=== PATIENT | male | born 1965 ===

== ENCOUNTER 2018-02-20 18:12 | Emergency (ER) | payer MEDICAID ==
--- NOTE | 2018-02-20 18:59 | ED PDOC ---
HPI: General Adult Time Seen by Provider: 02/20/18 18:54 Chief Complaint (Nursing): Chest Pain Chief Complaint (Provider): CP History Per: Patient (52 Y/O MALE H/O HTN HERE WITH COMPLAINT OF CHEST TIGHTNESS ONGOING X 2 DAYS. PATIENT DENIES ANY COUGH/SOB. NOTES HE HAS HAD EPISODES OF SYNCOPE IN PAST (LAST ONE 3 WEEKS AGO AGO AND ONE 6 MONTHS AGO). WAS NOTED IN PAST TO HAVE LOW POTASSIUM/MAGNESIUM. PATIENT HAS BEEN SEEN BY CARDIOLOGY AND HAD HOLTER MONITOR 3 DAYS (6 MONTHS AGO) WNL. STATES HE HAD STRESS TEST AT THAT TIME WNL.) Past Medical History Reviewed: Historical Data, Nursing Documentation, Vital Signs Vital Signs: Last Vital Signs Temp 98.5 F 02/20/18 18:16 Pulse 65 02/20/18 18:39 Resp 16 02/20/18 18:16 BP 162/91 H 02/20/18 18:16 Pulse Ox 98 02/20/18 18:16 - Medical History PMH: HTN - Family History Family History: States: No Known Family Hx - Allergies Allergies/Adverse Reactions: Allergies Allergy/AdvReac Type Severity Reaction Status Date / Time No Known Allergies Allergy Verified 02/20/18 18:16 Review of Systems ROS Statement: Except As Marked, All Systems Reviewed And Found Negative Physical Exam - Reviewed Nursing Documentation Reviewed: Yes Vital Signs Reviewed: Yes - Physical Exam Appears: Positive for: Well, Non-toxic, No Acute Distress Head Exam: Positive for: ATRAUMATIC, NORMAL INSPECTION, NORMOCEPHALIC Skin: Positive for: Normal Color, Warm, DRY Eye Exam: Positive for: EOMI, Normal appearance, PERRL ENT: Positive for: Normal ENT Inspection Neck: Positive for: Normal, Painless ROM Cardiovascular/Chest: Positive for: Regular Rate, Rhythm Respiratory: Positive for: CNT, Normal Breath Sounds Gastrointestinal/Abdominal: Positive for: Normal Exam, Soft Back: Positive for: Normal Inspection Extremity: Positive for: Normal ROM Neurologic/Psych: Positive for: Alert, Oriented - Laboratory Results Result Diagrams: 02/20/18 19:15 02/20/18 19:36 - ECG O2 Sat by Pulse Oximetry: 98 - Progress ED Course And Treament: ekg: NO ACUTE CHANGES NOTED. NITRO SLG X 1 DOSE WITHOUT IMPROVEMENT Disposition - Clinical Impression Clinical Impression: Chest pain - Patient ED Disposition Is Patient to be Admitted: Transfer of Care - Disposition Referrals: Shola Hernandez MD [Family Provider] - Disposition: Transfer of Care Disposition Time: 20:00 Condition: FAIR Additional Instructions: You have chosen to sign out AGAINST MEDICAL ADVICE. Follow-up soonest possible with her private doctor or return any time if worse. Instructions: Chest Pain, Leaving Against Medical Advice Forms: [employer] (Greek) Patient Signed Over To: Elvira Jorgensen Handoff Comments: pending troponin
[2018-02-20 19:45] LABS: BASO % 0.3 % (0.0-2.0); EOS % 0.1 % (0.0-4.0); HEMOGLOBIN 15.9 g/dL (12.0-18.0); LYMPH # 1.1 K/uL (1.0-4.3); LYMPH % 9.7 % (20.0-40.0); MEAN CELL VOLUME 88.4 fl (80.0-94.0); MEAN CORPUSCULAR HGB CONC 33.9 g/dL (33.0-37.0); MEAN PLATELET VOLUME 8.2 fl (7.2-11.7); MONO # 0.5 K/uL (0.0-0.8); MONO % 4.2 % (0.0-10.0); NEUT # 9.7 K/uL (1.8-7.0); NEUT % 85.7 % (50.0-75.0); PLATELET COUNT 255 K/uL (130-400); RBC 5.31 Mil/uL (4.40-5.90); RED CELL DISTRIBUTION WIDTH 13.5 % (11.5-14.5); WHITE BLOOD COUNT 11.4 K/uL (4.8-10.8)
[2018-02-20 19:57] LABS: ALB/GLOB RATIO 1.2 (1.0-2.1); ALBUMIN 4.4 g/dL (3.5-5.0); BLOOD UREA NITROGEN 15 mg/dl (9-20); CALCIUM 9.2 mg/dL (8.4-10.2); GFR NON-AFRICAN AMERICAN > 60
[2018-02-20 20:01] LABS: BARBITURATES, UR NEGATIVE (NEGATIVE); BENZODIAZEPINES, UR NEGATIVE (NEGATIVE); OPIATES, UR NEGATIVE (NEGATIVE); PHENCYCLIDINE, UR NEGATIVE (NEGATIVE)
[2018-02-20 20:02] LABS: ALT/SGPT 27 U/L (21-72); AST/SGOT 34 U/L (17-59)
--- NOTE | 2018-02-20 20:21 | ED PDOC ---
- Laboratory Results Result Diagrams: 02/20/18 19:15 02/20/18 19:36 - ECG O2 Sat by Pulse Oximetry: 98 Pulse Ox Interpretation: Normal Medical Decision Making Medical Decision Making: Case was signed out to securities underwriter pending diagnostic testing results and final disposition. Patient is aware of all diagnostic testing results, all questions answered. Patient's states he still has slight chest pain but he feels somewhat better. Backup Sawyer recommends admission but patient does not want to stay in hospital. Patient was advised he needs to sign out AGAINST MEDICAL ADVICE. He agrees with this. The risks and dangers of signing out AGAINST MEDICAL ADVICE which include but are not limited to worsening of current condition, possible acute cardiac event, possible , were discussed in detail with patient. Patient accepts these risks and still wishes to sign out AGAINST MEDICAL ADVICE. Patient is competent and capable of making this decision at this time. Patient was advised to follow-up with primary doctor as soon as possible or return to ED any time if acutely worse. Disposition - Clinical Impression Clinical Impression: Chest pain - POA Present On Arrival: None - Disposition Referrals: Shola Hernandez MD [Family Provider] - Disposition: AGAINST MEDICAL ADVICE Disposition Time: 21:48 Condition: UNKNOWN Additional Instructions: You have chosen to sign out AGAINST MEDICAL ADVICE. Follow-up soonest possible with her private doctor or return any time if worse. Instructions: Chest Pain, Leaving Against Medical Advice Forms: [employer] (Mauritanian)
[2018-02-20 20:34] VITALS: BP 129/78; PULSE 62; RESP 14; TEMP 98.3
[2018-02-20 21:48] VITALS: O2SAT 98
[2018-02-20 22:09] LABS: BANDS 3 % (0-2); LYMPHOCYTE 12 % (20-50); MONOCYTE 5 % (0-10); NEUTROPHIL 80 % (42-75); TOTAL CELLS COUNTED 100
[2018-02-20 22:10] LABS: HYPOCHROMIC SLIGHT; PLATELET ESTIMATE NORMAL (NORMAL); TOXIC GRANULATION PRESENT
--- NOTE | 2018-02-21 10:12 | RAD ---
Date of service: 02/20/2018 HISTORY: Chest pain COMPARISON: 05/18/2008 FINDINGS: LUNGS: The lungs are well inflated and clear. PLEURA: No pleural effusions or pneumothorax. CARDIOVASCULAR: The heart is normal in size. No aortic atherosclerotic calcification present. OSSEOUS STRUCTURES: Within normal limits for the patient's age. VISUALIZED UPPER ABDOMEN: Normal. OTHER FINDINGS: None. IMPRESSION: No active pulmonary disease.
--- NOTE | 2018-02-21 10:24 | CARD ---
APPROVED REPORT Date of service: 02/20/2018 EKG Measurement Heart [id number] <Conclusion> Normal sinus rhythm Normal Electrocardiogram
== END 2018-02-20 21:58 | disposition left against medical advice (07) ==
LOC: H.ER 18:12
DX: R07.89 Other chest pain (principal); I10 Essential (primary) hypertension